=== PATIENT | female | born 1985 ===

== ENCOUNTER 2019-02-01 18:29 | Emergency (ER) | payer OTHER ==
[2019-02-01 18:37] VITALS: BP 160/110
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
--- NOTE | 2019-02-01 19:43 | XRay Report ---
PROCEDURE: XR SPINE CERVICAL 2-3V HISTORY: neck pain FINDINGS: AP lateral and swimmer's views of the cervical spine were acquired and demonstrate no fract ure or malalignment of the cervical spine. The prevertebral soft tissues are within normal limits. Th e intervertebral disc space heights appear preserved. IMPRESSION: No fracture is seen in the cervical spine This document is electronically signed by Tommy Camejo MD., February 01 2019 07:41:15 PM ET
== END 2019-02-01 22:08 | disposition left against medical advice (07) ==
LOC: ED 18:29
DX: Z04.1 Encounter for examination and observation following transport accident (principal); Z53.21 Procedure and treatment not carried out due to patient leaving prior to being seen by health care provider
CPT/HCPCS: 72040; 72100